=== PATIENT | male | born 1990 | race Caucasian/White ===

== ENCOUNTER 2025-05-09 20:40 | Emergency (ER) | payer OTHER | END 2025-05-09 21:07 | disposition home or self-care (01) | LOC: FB.ED 20:40 | DX: S51.012A Laceration without foreign body of left elbow, initial encounter (principal); W26.8XXA Contact with other sharp object(s), not elsewhere classified, initial encounter; Y93.89 Activity, other specified | CPT/HCPCS: 12001; 99282; J2003; 99283 ==